=== PATIENT | female | born 1960 | race Caucasian/White ===

== ENCOUNTER 2020-12-13 08:04 | Outpatient (CLI) | payer BC ==
[2020-12-13 11:09] LABS: Anion Gap 13 mmol/L (10-20); BUN (Urea Nitrogen) 14 mg/dL (9.8-20.1); Calc. Creatinine Clearance 0 mL/min (70-130); Calcium 9.6 mg/dL (7.8-10.44); Carbon Dioxide 24 mmol/L (23-31); Chloride 106 mmol/L (98-107); Glucose 90 mg/dL (80-115); Potassium 4.4 mmol/L (3.5-5.1); Sodium 139 mmol/L (136-145)
[2020-12-13 11:10] LABS: ALT (SGPT) 17 U/L (8-55); AST (SGOT) 15 U/L (5-34); Albumin 4.1 g/dL (3.4-4.8); Alkaline Phosphatase 94 U/L (40-110); Bilirubin, Direct 0.1 mg/dL (0.1-0.3); Bilirubin, Total 0.2 mg/dL (0.2-1.2); Protein, Total 6.4 g/dL (5.8-8.1)
[2020-12-13 11:30] LABS: #Basophils 0.1 10x3/uL (0.0-0.2); #Eosinphils 0.1 10x3/uL (0.0-0.5); #Monocytes 1.1 10x3/uL (0.0-1.1); #Neutrophils 7.3 10x3/uL (1.5-8.4); %Basophils 0.5 % (0.0-2.0); %Eosinophils 1.2 % (0.0-6.0); %Lymphocytes 14.4 % (18.0-47.0); %Monocytes 10.5 % (0.0-10.0); %Neutrophils 72.9 % (40.0-75.0); Hemoglobin 13.4 g/dL (12.0-15.5); Mean Corpuscular HGB CONC 32.6 g/dL (32.0-36.0); Mean Corpuscular Hemoglobin 31.6 pg (27.0-33.0); Mean Corpuscular Volume 96.9 fl (81.6-98.3); Mean Platelet Volume 10.9 fl (7.4-10.4); Platelet Count 183 10x3/uL (150-450); RBC Distribution Width 12.3 % (11.5-14.5); Red Blood Cell (RBC) Count 4.24 10x6/uL (3.90-5.03)
[2020-12-13 21:48] LABS: SARS-CoV-2 PCR by NAA Not Detected (NotDetected)
== END 2020-12-13 08:05 | disposition home or self-care (01) ==
LOC: LABBT 08:04
PROVIDERS: ATTEND Surgery
DX: Z01.818 Encounter for other preprocedural examination (principal); K80.20 Calculus of gallbladder without cholecystitis without obstruction; Z20.822 Contact with and (suspected) exposure to COVID-19
CPT/HCPCS: 80048; 80076; 85025; 93005; 93010; U0003; U0005

== ENCOUNTER 2020-12-16 06:59 | Day surgery (SDC) | payer BC ==
[2020-12-15 11:26] VITALS: BMI 26.6
[2020-12-16] MEDS ORDERED: Levofloxacin 500 mg/D5W 100 ml Premix Bag ONE (07:53)
[2020-12-16] MEDS ORDERED: Midazolam HCl 2 mg/2 ml Vial ONE ×2 (08:22→08:33)
[2020-12-16] MEDS ORDERED: Lidocaine 1% w/Epinephrine 1:100K 20 ML VIAL ONE (08:32)
[2020-12-16] MEDS ORDERED: Bupivacaine 0.25% HCL 30 ML VIAL ONE (08:32)
[2020-12-16] MEDS ORDERED: Fentanyl 100 MCG/2 ML VIAL ONE ×3 (08:33→09:56)
[2020-12-16] MEDS ORDERED: Lidocaine 2% Jelly 5 ML TUBE ONE (08:33)
[2020-12-16] MEDS ORDERED: Lidocaine 1% PF 5 ML VIAL ONE (08:50)
[2020-12-16] MEDS ORDERED: Dexamethasone 20 MG/5 ML VIAL ONE (08:50)
[2020-12-16] MEDS ORDERED: Rocuronium Bromide 10 MG/ML (10ML VIAL) ONE (08:50)
[2020-12-16] MEDS ORDERED: PROPOFOL 200 MG/20 ML VIAL ONE (08:50)
[2020-12-16] MEDS ORDERED: Glycopyrrolate 0.2 MG/ML 5 ML SYRINGE ONE (08:50)
[2020-12-16] MEDS ORDERED: Ondansetron PF 4 MG/2 ML Vial ONE (08:50)
[2020-12-16] MEDS ORDERED: HYDROmorphone 0.5 MG/0.5 ML SYRINGE ONE (09:09)
[2020-12-16] MEDS ORDERED: Promethazine HCl 25 MG/ML VIAL ONE (09:38)
[2020-12-16] MEDS ORDERED: Meperidine HCl/PF 25 MG/ML VIAL ONE (10:15)
== END 2020-12-16 11:30 | disposition home or self-care (01) ==
LOC: SDC 06:59
PROVIDERS: ATTEND Surgery
PROC: 0FT44ZZ Resection of Gallbladder, Percutaneous Endoscopic Approach (ICD-10-PCS; principal; 2020-12-16)
DX: K80.10 Calculus of gallbladder with chronic cholecystitis without obstruction (principal); E03.9 Hypothyroidism, unspecified; Z80.0 Family history of malignant neoplasm of digestive organs; Z88.8 Allergy status to other drugs, medicaments and biological substances
CPT/HCPCS: 88304; J1100; J1170; J1956; J2175; J2250; J2405; J2550; J2704; J3010; S0020

== ENCOUNTER 2021-02-22 10:35 | Outpatient (CLI) | payer BC | END 2021-02-22 10:36 | disposition home or self-care (01) | LOC: BICRAD 10:35 | PROVIDERS: ATTEND Specialist | DX: M54.50 Low back pain, unspecified (principal); M47.816 Spondylosis without myelopathy or radiculopathy, lumbar region | CPT/HCPCS: 72100 ==

== ENCOUNTER 2021-05-26 11:45 | Inpatient (IN) | payer BC ==
[2021-05-31] MEDS ORDERED: Midazolam HCl 2 mg/2 ml Vial ONE ×2 (09:31→11:06)
[2021-05-31] MEDS ORDERED: Dexamethasone 4 mg/ml Vial ONE (09:31)
[2021-05-31] MEDS ORDERED: Fentanyl 100 MCG/2 ML VIAL ONE ×5 (09:31→14:36)
[2021-05-31] MEDS ORDERED: Bupivacaine 0.25% 10 ML VIAL ONE ×2 (11:22)
[2021-05-31] MEDS ORDERED: Lidocaine 1% w/Epinephrine 1:100K 30 ML VIAL ONE (11:22)
[2021-05-31] MEDS ORDERED: SUGAMMADEX SODIUM 200 MG/2 ML VIAL ONE (11:30)
[2021-05-31] MEDS ORDERED: Sodium Chloride 0.9% 100 ML ONE (11:37)
[2021-05-31] MEDS ORDERED: cefOXitin 2 GM VIAL ONE (11:37)
[2021-05-31] MEDS ORDERED: HYDROmorphone 0.5 MG/0.5 ML SYRINGE ONE (11:47)
[2021-05-31] MEDS ORDERED: Ondansetron PF 4 MG/2 ML Vial ONE (11:53)
[2021-05-31] MEDS ORDERED: Glycopyrrolate 0.2 MG/ML 5 ML SYRINGE ONE (11:53)
[2021-05-31] MEDS ORDERED: Bupivacaine HCl 0.5%/Epinephrine 1:200,000/PF 30 ml Vial ONE (11:53)
[2021-05-31] MEDS ORDERED: Dexamethasone 20 MG/5 ML VIAL ONE (11:53)
[2021-05-31] MEDS ORDERED: Rocuronium Bromide 10 MG/ML (10ML VIAL) ONE (11:53)
[2021-05-31] MEDS ORDERED: PROPOFOL 200 MG/20 ML VIAL ONE (11:53)
[2021-05-31] MEDS ORDERED: Lidocaine 1% PF 5 ML VIAL ONE (11:53)
[2021-05-31] MEDS ORDERED: Promethazine HCl 25 MG/ML VIAL IM PRN ×2 (13:23)
[2021-05-31] MEDS ORDERED: Promethazine HCl 25 MG/ML VIAL IVPB PRN (13:23)
[2021-05-31] MEDS ORDERED: diphenhydrAMINE 50 MG/ML VIAL IVP PRN (13:23)
[2021-05-31] MEDS ORDERED: fentaNYL Citrate/PF 2,000 MCG in Sodium Chloride 0.9% 60 ML IV PRN (13:23)
[2021-05-31] MEDS ORDERED: Naloxone HCl 0.4 mg/ml Vial IV PRN (13:23)
[2021-05-31] MEDS ORDERED: diphenhydrAMINE 25 MG CAP PO PRN (13:23)
[2021-05-31] MEDS ORDERED: diphenhydrAMINE 50 MG/ML VIAL IM PRN (13:23)
[2021-05-31] MEDS ORDERED: Ondansetron PF 4 MG/2 ML Vial IVP PRN (13:23)
[2021-05-31] MEDS ORDERED: Ondansetron HCl/PF 4 MG/2 ML Vial IVP PRN (13:23)
[2021-05-31] MEDS ORDERED: Zolpidem Tartrate 5 MG TAB PO PRN (13:23)
[2021-05-31] MEDS ORDERED: Communication Order-Pharmacy FS SCH (13:30)
[2021-05-31] MEDS ORDERED: hydrALAZINE 20 MG/ML VIAL SLOW IVP PRN (15:42)
[2021-05-31] MEDS ORDERED: Montelukast Sodium 10 mg Tablet PO PRN (15:42)
[2021-05-31] MEDS ORDERED: TEMAZEPAM 7.5 MG PO PRN (16:16)
[2021-05-31 18:45] VITALS: BMI 25.5
[2021-05-31] MEDS: metroNIDAZOLE 500 MG in Premix Bag 1 BAG IVPB SCH (19:46)
[2021-05-31] MEDS: Famotidine 20 MG TAB PO SCH (20:31)
[2021-05-31] MEDS: Famotidine/PF 20 mg/2ml Vial SLOW IVP SCH (20:37)
[2021-06-01] MEDS: D5 1/2 NS w/20 mEq KCL 1,000 ML IV SCH ×5 (00:37→14:32)
[2021-06-01] MEDS: metroNIDAZOLE 500 MG in Premix Bag 1 BAG IVPB SCH ×2 (00:38→05:16)
[2021-06-01] MEDS: Levothyroxine 150 MCG TAB PO SCH (05:15)
[2021-06-01 06:05] LABS: #Lymphocytes 1.2 thou/uL (1.20-3.40); #Monocytes 1.6 thou/uL (0.11-0.59); #Neutrophils 10.8 thou/uL (1.40-6.50); %Basophils 0.1 % (0.0-1.0); %Eosinophils 0.1 % (0.0-10.0); %Monocytes 11.7 % (0.0-10.0); %Neutrophils 79.2 % (42.0-75.0); Hemoglobin 9.7 g/dL (12.0-16.0); Mean Corpuscular HGB CONC 32.3 g/dL (32.0-36.0); Mean Corpuscular Volume 95.9 fL (78.0-98.0); Mean Platelet Volume 7.6 fL (7.4-10.4); Platelet Count 256 thou/uL (130-400); RBC Distribution Width 13.2 % (11.5-14.5); Red Blood Cell (RBC) Count 3.14 mill/uL (4.20-5.40); White Blood Cell (WBC) Count 13.6 thou/uL (4.8-10.8)
[2021-06-01 06:31] LABS: Anion Gap 12 mmol/L (10-20); BUN (Urea Nitrogen) 9 mg/dL (9.8-20.1); Calc. Creatinine Clearance 85 mL/min (70-130); Calcium 8.5 mg/dL (7.8-10.44); Carbon Dioxide 24 mmol/L (23-31); Chloride 106 mmol/L (98-107); Glucose 136 mg/dL (80-115); Potassium 4.9 mmol/L (3.5-5.1); Sodium 137 mmol/L (136-145)
[2021-06-01] MEDS: Enoxaparin Sodium 40 MG/0.4 ML SYRINGE SC SCH (08:18)
[2021-06-01] MEDS: Famotidine 20 MG TAB PO SCH ×2 (08:18→20:42)
[2021-06-01] MEDS: Ramipril 5 MG CAP PO SCH (08:18)
[2021-06-01] MEDS: Famotidine/PF 20 mg/2ml Vial SLOW IVP SCH ×2 (08:19→20:42)
[2021-06-01] MEDS ORDERED: FLU VACC QS2021-22(6MOS UP)/PF 60 MCG/0.5 ML SYRINGE IM ONE (09:00)
[2021-06-01] MEDS: Ondansetron PF 4 MG/2 ML Vial IVP PRN (14:26)
[2021-06-02] MEDS: Levothyroxine 150 MCG TAB PO SCH (05:06)
[2021-06-02] MEDS: D5 1/2 NS w/20 mEq KCL 1,000 ML IV SCH ×2 (05:06→17:16)
[2021-06-02 05:47] LABS: #Eosinphils 0.2 thou/uL (0.0-0.7); #Monocytes 1.2 thou/uL (0.11-0.59); #Neutrophils 8.3 thou/uL (1.40-6.50); %Basophils 0.5 % (0.0-1.0); %Lymphocytes 9.2 % (21.0-51.0); %Monocytes 11.5 % (0.0-10.0); %Neutrophils 76.9 % (42.0-75.0); Hemoglobin 7.8 g/dL (12.0-16.0); Mean Corpuscular Hemoglobin 31.1 pg (27.0-31.0); Mean Corpuscular Volume 97.2 fL (78.0-98.0); Mean Platelet Volume 7.4 fL (7.4-10.4); Platelet Count 197 thou/uL (130-400); RBC Distribution Width 13.1 % (11.5-14.5); Red Blood Cell (RBC) Count 2.52 mill/uL (4.20-5.40); White Blood Cell (WBC) Count 10.8 thou/uL (4.8-10.8)
[2021-06-02 06:07] LABS: Anion Gap 10 mmol/L (10-20); BUN (Urea Nitrogen) 5 mg/dL (9.8-20.1); Calc. Creatinine Clearance 96 mL/min (70-130); Calcium 8.4 mg/dL (7.8-10.44); Carbon Dioxide 25 mmol/L (23-31); Chloride 104 mmol/L (98-107); Glucose 119 mg/dL (80-115); Potassium 4.6 mmol/L (3.5-5.1); Sodium 134 mmol/L (136-145)
[2021-06-02] MEDS: Famotidine 20 MG TAB PO SCH ×2 (08:13→20:39)
[2021-06-02] MEDS: Enoxaparin Sodium 40 MG/0.4 ML SYRINGE SC SCH (08:13)
[2021-06-02] MEDS: Ramipril 5 MG CAP PO SCH (08:13)
[2021-06-02] MEDS: Famotidine/PF 20 mg/2ml Vial SLOW IVP SCH ×2 (08:14→23:47)
[2021-06-02] MEDS: Fentanyl 100 MCG/2 ML VIAL SLOW IVP PRN ×2 (13:20→17:25)
[2021-06-02] MEDS: ALPRAZolam 0.5 MG TAB PO PRN ×2 (13:53→20:43)
[2021-06-02] MEDS: Ondansetron PF 4 MG/2 ML Vial IVP PRN (22:47)
[2021-06-03] MEDS: Promethazine HCl 25 MG/ML VIAL IM PRN ×3 (02:01→19:48)
[2021-06-03] MEDS: Levothyroxine 150 MCG TAB PO SCH (05:44)
[2021-06-03] MEDS: Ondansetron PF 4 MG/2 ML Vial IVP PRN ×3 (06:17→21:03)
[2021-06-03] MEDS: Ramipril 5 MG CAP PO SCH (08:39)
[2021-06-03] MEDS: Famotidine 20 MG TAB PO SCH ×2 (08:40→21:02)
[2021-06-03] MEDS: Enoxaparin Sodium 40 MG/0.4 ML SYRINGE SC SCH (08:40)
[2021-06-03] MEDS: D5 1/2 NS w/20 mEq KCL 1,000 ML IV SCH ×2 (08:41→21:02)
[2021-06-03] MEDS: Fentanyl 100 MCG/2 ML VIAL SLOW IVP PRN ×2 (13:18→17:49)
[2021-06-03] MEDS: HYDROcodone/Acetaminophen 7.5/325 mg Tablet PO PRN (15:32)
[2021-06-03] MEDS: Famotidine/PF 20 mg/2ml Vial SLOW IVP SCH ×2 (15:37→21:02)
[2021-06-03] MEDS: Ketorolac Tromethamine 30 MG/ML VIAL IVP PRN (17:48)
[2021-06-03] MEDS ORDERED: Benzocaine 20% Spray 60 ML CAN PO SCH (19:45)
[2021-06-04] MEDS: Promethazine HCl 25 MG/ML VIAL IM PRN ×2 (00:45→05:31)
[2021-06-04] MEDS: Ondansetron PF 4 MG/2 ML Vial IVP PRN ×2 (03:05→08:55)
[2021-06-04] MEDS: D5 1/2 NS w/20 mEq KCL 1,000 ML IV SCH (05:31)
[2021-06-04 05:35] LABS: Anion Gap 11 mmol/L (10-20); BUN (Urea Nitrogen) 4 mg/dL (9.8-20.1); Calc. Creatinine Clearance 86 mL/min (70-130); Calcium 8.7 mg/dL (7.8-10.44); Carbon Dioxide 28 mmol/L (23-31); Chloride 102 mmol/L (98-107); Glucose 106 mg/dL (80-115); Potassium 4.4 mmol/L (3.5-5.1); Sodium 137 mmol/L (136-145)
[2021-06-04] MEDS: Levothyroxine 150 MCG TAB PO SCH (05:36)
[2021-06-04 05:50] LABS: #Eosinphils 0.4 thou/uL (0.0-0.7); #Lymphocytes 1.4 thou/uL (1.20-3.40); #Monocytes 0.9 thou/uL (0.11-0.59); %Basophils 0.2 % (0.0-1.0); %Eosinophils 3.4 % (0.0-10.0); %Lymphocytes 11.7 % (21.0-51.0); %Monocytes 7.7 % (0.0-10.0); %Neutrophils 77.1 % (42.0-75.0); Mean Corpuscular HGB CONC 31.3 g/dL (32.0-36.0); Mean Corpuscular Hemoglobin 29.8 pg (27.0-31.0); Mean Corpuscular Volume 95.3 fL (78.0-98.0); Mean Platelet Volume 6.8 fL (7.4-10.4); Platelet Count 278 thou/uL (130-400); Red Blood Cell (RBC) Count 3.01 mill/uL (4.20-5.40); White Blood Cell (WBC) Count 11.6 thou/uL (4.8-10.8)
[2021-06-04] MEDS: Fentanyl 100 MCG/2 ML VIAL SLOW IVP PRN (06:54)
[2021-06-04] MEDS: Ketorolac Tromethamine 30 MG/ML VIAL IVP PRN (06:55)
[2021-06-04] MEDS: Famotidine/PF 20 mg/2ml Vial SLOW IVP SCH (08:23)
[2021-06-04] MEDS: Enoxaparin Sodium 40 MG/0.4 ML SYRINGE SC SCH (08:24)
[2021-06-04] MEDS: Ramipril 5 MG CAP PO SCH (08:24)
[2021-06-04 10:47] VITALS: BP 162/68; TEMP 98.2
[2021-06-04] MEDS: HYDROcodone/Acetaminophen 7.5/325 mg Tablet PO PRN ×2 (11:01→14:36)
[2021-06-04] MEDS: Famotidine 20 MG TAB PO SCH (11:02)
== END 2021-06-04 18:15 | disposition home or self-care (01) | DRG 330 ==
LOC: SURG A 05-31 08:24
PROVIDERS: ADMIT Surgery; ATTEND Surgery
PROC: 0DBN0ZZ Excision of Sigmoid Colon, Open Approach (ICD-10-PCS; principal; 2021-05-31)
DX: K57.20 Diverticulitis of large intestine with perforation and abscess without bleeding (principal); N32.1 Vesicointestinal fistula; K56.7 Ileus, unspecified; Z20.822 Contact with and (suspected) exposure to COVID-19; F41.9 Anxiety disorder, unspecified; E03.9 Hypothyroidism, unspecified; Z79.899 Other long term (current) drug therapy; Z90.710 Acquired absence of both cervix and uterus; Z88.0 Allergy status to penicillin; Z88.8 Allergy status to other drugs, medicaments and biological substances
CPT/HCPCS: 36415; 36416; 80048; 85025; 88304; 88307; A4649; C1713; C1776; J0694; J1100; J1170; J1650; J1885; J1956; J2250; J2405; J2550; J2704; J3010; J3480; J3490; S0020; S0028

== ENCOUNTER 2021-05-26 11:51 | Outpatient (CLI) | payer BC ==
[2021-05-26 13:11] LABS: #Basophils 0.1 10x3/uL (0.0-0.2); #Eosinphils 0.1 10x3/uL (0.0-0.5); #Monocytes 0.8 10x3/uL (0.0-1.1); #Neutrophils 10.2 10x3/uL (1.5-8.4); %Basophils 0.4 % (0.0-2.0); %Lymphocytes 12.2 % (18.0-47.0); %Monocytes 6.5 % (0.0-10.0); %Neutrophils 79.4 % (40.0-75.0); Mean Corpuscular HGB CONC 31.9 g/dL (32.0-36.0); Mean Corpuscular Hemoglobin 29.4 pg (27.0-33.0); Mean Corpuscular Volume 92.2 fl (81.6-98.3); Mean Platelet Volume 10.6 fl (7.4-10.4); Platelet Count 239 10x3/uL (150-450); RBC Distribution Width 14.2 % (11.5-14.5); Red Blood Cell (RBC) Count 4.08 10x6/uL (3.90-5.03); White Blood Cell (WBC) Count 12.9 10x3/uL (3.5-10.5)
[2021-05-26 13:21] LABS: Anion Gap 16 mmol/L (10-20); BUN (Urea Nitrogen) 15 mg/dL (9.8-20.1); Calc. Creatinine Clearance 0 mL/min (70-130); Calcium 9.2 mg/dL (7.8-10.44); Carbon Dioxide 24 mmol/L (23-31); Chloride 103 mmol/L (98-107); Glucose 91 mg/dL (80-115); Potassium 4.7 mmol/L (3.5-5.1); Sodium 138 mmol/L (136-145)
[2021-05-27 08:38] LABS: SARS-CoV-2 PCR by NAA Not Detected (NotDetected)
== END 2021-05-26 11:52 | disposition home or self-care (01) ==
LOC: LABBT 11:51
PROVIDERS: ATTEND Surgery
DX: Z01.812 Encounter for preprocedural laboratory examination (principal); N32.1 Vesicointestinal fistula; Z20.822 Contact with and (suspected) exposure to COVID-19
CPT/HCPCS: 80048; 83036; 85025; U0003; U0005

== ENCOUNTER 2021-06-30 13:47 | Outpatient (CLI) | payer BC | END 2021-06-30 13:48 | disposition home or self-care (01) | LOC: BICCT 13:47 | PROVIDERS: ATTEND Surgery | DX: N32.1 Vesicointestinal fistula (principal); N73.9 Female pelvic inflammatory disease, unspecified | CPT/HCPCS: 74177 ==

== ENCOUNTER 2021-07-07 11:02 | Day surgery (SDC) | payer BC ==
[2021-07-06 16:01] VITALS: BMI 24.5
[2021-07-07] MEDS ORDERED: Fentanyl 100 MCG/2 ML VIAL ONE ×2 (12:20→13:05)
[2021-07-07 12:22] LABS: INR-International Normal Ratio 0.9; PTT 32.2 sec (22.9-36.1); Prothrombin Time 12.4 sec (12.0-14.7)
[2021-07-07] MEDS ORDERED: Sodium Bicarbonate 2.5 MEQ/5 ML VIAL ONE (12:22)
[2021-07-07] MEDS ORDERED: Midazolam HCl 2 mg/2 ml Vial ONE ×2 (12:22→13:05)
[2021-07-07] MEDS ORDERED: Lidocaine 1% PF 5 ML VIAL ONE (12:22)
[2021-07-07 15:09] VITALS: BP 160/70; TEMP 98.7
[2021-07-07 15:12] LABS: BF Color Red; Body Fluid Source Abscess Fluid; Clarity Hazy (Clear); Tube # EDTA
[2021-07-07] MEDS ORDERED: traMADol HCl 50 MG TAB PO SCH (15:15)
== END 2021-07-07 15:24 | disposition home or self-care (01) ==
LOC: CT 11:02
PROVIDERS: ATTEND Surgery
PROC: 0W9G30Z Drainage of Peritoneal Cavity with Drainage Device, Percutaneous Approach (ICD-10-PCS; principal; 2021-07-07)
DX: N73.9 Female pelvic inflammatory disease, unspecified (principal); E07.9 Disorder of thyroid, unspecified; Z79.890 Hormone replacement therapy; Z79.899 Other long term (current) drug therapy; Z88.0 Allergy status to penicillin; Z88.8 Allergy status to other drugs, medicaments and biological substances; Z90.49 Acquired absence of other specified parts of digestive tract
CPT/HCPCS: 49060; 77002; 85060; 85610; 85730; 87070; 87077; 87186; 87205; 89051; C1729; J0744; J2250; J3010

== ENCOUNTER 2021-09-30 08:51 | Outpatient (CLI) | payer BC | END 2021-09-30 08:52 | disposition home or self-care (01) | LOC: BICMAMMO 08:51 | PROVIDERS: ATTEND Specialist | DX: Z12.31 Encounter for screening mammogram for malignant neoplasm of breast (principal); M85.89 Other specified disorders of bone density and structure, multiple sites | CPT/HCPCS: 77063; 77067; 77080 ==

== ENCOUNTER 2022-03-02 09:29 | Outpatient (CLI) | payer BC | END 2022-03-02 09:30 | disposition home or self-care (01) | LOC: CT 09:29 | PROVIDERS: ATTEND Internal Medicine Gastroenterology | DX: R19.7 Diarrhea, unspecified (principal); R23.2 Flushing; K43.9 Ventral hernia without obstruction or gangrene; K59.00 Constipation, unspecified; K76.9 Liver disease, unspecified; Z98.890 Other specified postprocedural states | CPT/HCPCS: 74177; 82565 ==

== ENCOUNTER 2022-03-30 10:17 | Outpatient (CLI) | payer BC ==
[2022-03-30 12:37] LABS: #Basophils 0.1 10x3/uL (0.0-0.2); #Eosinphils 0.2 10x3/uL (0.0-0.5); #Monocytes 0.6 10x3/uL (0.0-1.1); #Neutrophils 5.7 10x3/uL (1.5-8.4); %Basophils 0.9 % (0.0-2.0); %Eosinophils 1.9 % (0.0-6.0); %Lymphocytes 18.8 % (18.0-47.0); %Neutrophils 71.2 % (40.0-75.0); Mean Corpuscular HGB CONC 33.9 g/dL (32.0-36.0); Mean Corpuscular Hemoglobin 32.4 pg (27.0-33.0); Mean Corpuscular Volume 95.5 fl (81.6-98.3); Mean Platelet Volume 11.1 fl (7.4-10.4); Platelet Count 196 10x3/uL (150-450); RBC Distribution Width 12.8 % (11.5-14.5); Red Blood Cell (RBC) Count 4.63 10x6/uL (3.90-5.03)
[2022-03-30 13:15] LABS: Anion Gap 15 mmol/L (10-20); BUN (Urea Nitrogen) 19 mg/dL (9.8-20.1); Calc. Creatinine Clearance 0 mL/min (70-130); Calcium 9.6 mg/dL (7.8-10.44); Carbon Dioxide 22 mmol/L (23-31); Chloride 105 mmol/L (98-107); Estimated GFR 76; Glucose 84 mg/dL (80-115); Potassium 4.2 mmol/L (3.5-5.1); Sodium 138 mmol/L (136-145)
== END 2022-03-30 10:18 | disposition home or self-care (01) ==
LOC: LABBT 10:17
PROVIDERS: ATTEND Surgery
DX: Z01.818 Encounter for other preprocedural examination (principal); K43.2 Incisional hernia without obstruction or gangrene
CPT/HCPCS: 80048; 85025; 93005; 93010

== ENCOUNTER 2022-04-05 09:36 | Inpatient (IN) | payer BC ==
[2022-04-05] MEDS ORDERED: HYDROmorphone 0.5 MG/0.5 ML SYRINGE ONE ×2 (10:49→11:58)
[2022-04-05] MEDS ORDERED: fentaNYL PF 100 MCG/2 ML SYRINGE ONE ×3 (10:49→14:00)
[2022-04-05] MEDS ORDERED: Bupivacaine/Epinephrine 0.25% 30 ML VIAL ONE (10:50)
[2022-04-05] MEDS ORDERED: Midazolam HCl 2 mg/2 ml Vial ONE ×2 (11:00→11:18)
[2022-04-05] MEDS ORDERED: CEFAZOLIN 1 GM VIAL ONE (11:23)
[2022-04-05] MEDS ORDERED: Levofloxacin 500 mg/D5W 100 ml Premix Bag ONE (11:25)
[2022-04-05] MEDS ORDERED: NEOSTIGMINE 3 MG/3 ML SYR 3 MG/3 ML SYRINGE ONE (11:33)
[2022-04-05] MEDS ORDERED: PROPOFOL 200 MG/20 ML VIAL ONE (11:33)
[2022-04-05] MEDS ORDERED: Ondansetron PF 4 MG/2 ML Vial ONE (11:33)
[2022-04-05] MEDS ORDERED: Dexamethasone 20 MG/5 ML VIAL ONE (11:33)
[2022-04-05] MEDS ORDERED: Glycopyrrolate 0.2 MG/ML 5 ML SYRINGE ONE (11:33)
[2022-04-05] MEDS ORDERED: Lidocaine 1% PF 5 ML VIAL ONE (11:33)
[2022-04-05] MEDS ORDERED: Rocuronium Bromide 10 MG/ML (10ML VIAL) ONE (11:33)
[2022-04-05] MEDS ORDERED: HYDROmorphone 2 MG/ML VIAL SLOW IVP PRN (13:35)
[2022-04-05] MEDS ORDERED: Promethazine HCl 25 MG/ML VIAL IM PRN ×3 (13:35→13:39)
[2022-04-05] MEDS ORDERED: Ondansetron HCl/PF 4 MG/2 ML Vial IVP PRN (13:35)
[2022-04-05] MEDS ORDERED: Dextrose 50% Abboject 50 ML SYRINGE SLOW IVP PRN (13:37)
[2022-04-05] MEDS ORDERED: Ondansetron PF 4 MG/2 ML Vial IVP PRN (13:37)
[2022-04-05] MEDS ORDERED: Ipratropium/Albuterol 3 ML NEB NEB PRN (13:37)
[2022-04-05] MEDS ORDERED: Dextrose 5% in Water 1,000 ML IV PRN (13:37)
[2022-04-05] MEDS ORDERED: hydrALAZINE 20 MG/ML VIAL SLOW IVP PRN (13:37)
[2022-04-05] MEDS ORDERED: ALPRAZolam 0.5 MG TAB PO PRN (13:37)
[2022-04-05] MEDS ORDERED: diphenhydrAMINE 25 MG CAP PO PRN (13:39)
[2022-04-05] MEDS ORDERED: Naloxone HCl 0.4 mg/ml Vial IV PRN (13:39)
[2022-04-05] MEDS ORDERED: FENTANYL 500 MCG/10 ML VIAL 2,000 MCG in Sodium Chloride 0.9% 60 ML IV PRN (13:39)
[2022-04-05] MEDS ORDERED: diphenhydrAMINE 50 MG/ML VIAL IVP PRN (13:39)
[2022-04-05] MEDS ORDERED: diphenhydrAMINE 50 MG/ML VIAL IM PRN (13:39)
[2022-04-05] MEDS ORDERED: Zolpidem Tartrate 5 MG TAB PO PRN (13:39)
[2022-04-05] MEDS ORDERED: Promethazine HCl 25 MG/ML VIAL ONE (13:42)
[2022-04-05] MEDS ORDERED: TEMAZEPAM 7.5 MG PO PRN (13:43)
[2022-04-05] MEDS ORDERED: Communication Order-Pharmacy FS PRN (13:45)
[2022-04-05] MEDS: Famotidine 20 MG TAB PO SCH (20:39)
[2022-04-05] MEDS: Famotidine/PF 20 mg/2ml Vial SLOW IVP SCH (20:39)
[2022-04-05] MEDS: Icosapent Ethyl 1 GM CAPSULE PO SCH (20:40)
[2022-04-05] MEDS: D5 1/2 NS w/20 mEq KCL 1,000 ML IV SCH (21:11)
[2022-04-06] MEDS: Levothyroxine 150 MCG TAB PO SCH (05:29)
[2022-04-06] MEDS: Montelukast Sodium 10 mg Tablet PO SCH (09:28)
[2022-04-06] MEDS: Famotidine 20 MG TAB PO SCH ×2 (09:28→22:23)
[2022-04-06] MEDS: Famotidine/PF 20 mg/2ml Vial SLOW IVP SCH ×2 (09:29→21:21)
[2022-04-06] MEDS: D5 1/2 NS w/20 mEq KCL 1,000 ML IV SCH ×2 (09:31→12:39)
[2022-04-06] MEDS: Ramipril 5 MG CAP PO SCH (10:37)
[2022-04-06 20:15] VITALS: BMI 25.3
[2022-04-06] MEDS: Icosapent Ethyl 1 GM CAPSULE PO SCH (22:23)
[2022-04-07] MEDS: D5 1/2 NS w/20 mEq KCL 1,000 ML IV SCH ×3 (02:58→15:38)
[2022-04-07] MEDS ORDERED: Ketorolac Tromethamine 30 MG/ML VIAL IVP PRN (03:10)
[2022-04-07] MEDS ORDERED: HYDROcodone/Acetaminophen 7.5/325 mg Tablet PO PRN (03:11)
[2022-04-07] MEDS: Levothyroxine 150 MCG TAB PO SCH (06:39)
[2022-04-07] MEDS: Famotidine 20 MG TAB PO SCH ×2 (08:43→21:12)
[2022-04-07] MEDS: Famotidine/PF 20 mg/2ml Vial SLOW IVP SCH ×2 (08:44→23:44)
[2022-04-07] MEDS: Ramipril 5 MG CAP PO SCH (08:44)
[2022-04-07] MEDS: Montelukast Sodium 10 mg Tablet PO SCH (08:44)
[2022-04-07] MEDS: Ondansetron PF 4 MG/2 ML Vial IVP PRN ×2 (08:46→19:36)
[2022-04-07] MEDS: Icosapent Ethyl 1 GM CAPSULE PO SCH (21:12)
[2022-04-08] MEDS: D5 1/2 NS w/20 mEq KCL 1,000 ML IV SCH (03:52)
[2022-04-08] MEDS: Levothyroxine 150 MCG TAB PO SCH (06:07)
[2022-04-08 07:34] LABS: #Eosinphils 0.2 thou/uL (0.0-0.7); #Lymphocytes 0.9 thou/uL (1.20-3.40); #Monocytes 0.8 thou/uL (0.11-0.59); %Basophils 0.1 % (0.0-1.0); %Eosinophils 2.7 % (0.0-10.0); %Lymphocytes 10.3 % (21.0-51.0); Hemoglobin 8.3 g/dL (12.0-16.0); Mean Corpuscular Hemoglobin 33.8 pg (27.0-31.0); Mean Corpuscular Volume 99.4 fl (78.0-98.0); Mean Platelet Volume 8.8 fL (7.4-10.4); Platelet Count 136 10x3/uL (130-400); RBC Distribution Width 11.5 % (11.5-14.5); Red Blood Cell (RBC) Count 2.45 mill/uL (4.20-5.40)
[2022-04-08 07:45] LABS: Anion Gap 11 mmol/L (10-20); BUN (Urea Nitrogen) 8 mg/dL (9.8-20.1); Calc. Creatinine Clearance 98 mL/min (70-130); Calcium 8.6 mg/dL (7.8-10.44); Carbon Dioxide 23 mmol/L (23-31); Chloride 104 mmol/L (98-107); Estimated GFR 97; Glucose 112 mg/dL (80-115); Potassium 4.3 mmol/L (3.5-5.1); Sodium 134 mmol/L (136-145)
[2022-04-08] MEDS ORDERED: FLU VACC QS2022-23(6MOS UP)/PF 60 MCG/0.5 ML SYRINGE IM ONE (09:00)
[2022-04-08] MEDS: Famotidine 20 MG TAB PO SCH (09:42)
[2022-04-08] MEDS: Montelukast Sodium 10 mg Tablet PO SCH (09:42)
[2022-04-08] MEDS: Ramipril 5 MG CAP PO SCH (09:43)
[2022-04-08] MEDS: Famotidine/PF 20 mg/2ml Vial SLOW IVP SCH (09:43)
[2022-04-08 12:00] VITALS: BP 139/55; TEMP 98.7
== END 2022-04-08 11:35 | disposition home or self-care (01) | DRG 354 ==
LOC: SDC 09:36 → T4-B 13:34 → EDSTATUS 17:00 → OBSVTOIN 04-07 14:23
PROVIDERS: ADMIT Surgery; ATTEND Surgery
PROC: 0WUF0JZ Supplement Abdominal Wall with Synthetic Substitute, Open Approach (ICD-10-PCS; principal; 2022-04-05)
DX: K43.2 Incisional hernia without obstruction or gangrene (principal); K56.7 Ileus, unspecified; E03.9 Hypothyroidism, unspecified; F41.9 Anxiety disorder, unspecified; G89.29 Other chronic pain; Z79.890 Hormone replacement therapy; Z79.899 Other long term (current) drug therapy; Z90.710 Acquired absence of both cervix and uterus; Z87.442 Personal history of urinary calculi; Z90.49 Acquired absence of other specified parts of digestive tract; Z82.49 Family history of ischemic heart disease and other diseases of the circulatory system; Z88.0 Allergy status to penicillin; Z88.8 Allergy status to other drugs, medicaments and biological substances
CPT/HCPCS: 36415; 36416; 70450; 80048; 85025; 96372; 96374; 96375; 96376; C1781; G0378; J0690; J1100; J1170; J1650; J1885; J1956; J2250; J2405; J2550; J2704; J3010; J3480; J3490; S0028

== ENCOUNTER 2022-05-03 13:33 | Outpatient (CLI) | payer BC ==
[~2022-05-03 13:33] MED LIST: Iopamidol-370 76% 500 ML 1 ML ONE
== END 2022-05-03 13:34 | disposition home or self-care (01) ==
LOC: BICCT 13:33
PROVIDERS: ATTEND Specialist
DX: T81.49XA Infection following a procedure, other surgical site, initial encounter (principal)
CPT/HCPCS: 74177; Q9967

== ENCOUNTER 2023-05-30 08:40 | Outpatient (CLI) | payer BC | END 2023-05-30 08:41 | disposition home or self-care (01) | LOC: CT 08:40 | PROVIDERS: ATTEND Surgery | DX: K43.2 Incisional hernia without obstruction or gangrene (principal) | CPT/HCPCS: 74177; 82565 ==

== ENCOUNTER 2024-05-09 15:25 | Emergency (ER) | payer MEDICARE ==
[2024-05-09] MEDS ORDERED: PROPOFOL 20 ML ONE (16:20)
== END 2024-05-09 17:38 | disposition home or self-care (01) ==
LOC: ERS 15:25
DX: S43.005A Unspecified dislocation of left shoulder joint, initial encounter (principal); I10 Essential (primary) hypertension; F17.210 Nicotine dependence, cigarettes, uncomplicated; W01.0XXA Fall on same level from slipping, tripping and stumbling without subsequent striking against object, initial encounter
CPT/HCPCS: 23650; 73030; 73060; 99152; 99283; J2704

== ENCOUNTER 2024-09-17 21:58 | Emergency (ER) | payer MEDICARE ==
[2024-09-17] MEDS ORDERED: Boostrix 0.5 ML (Tdap) VIAL (>/=7 yrs of age) ONE (22:45)
[2024-09-17] MEDS ORDERED: Lidocaine 1% w/Epinephrine 1:100K 20 ML VIAL ONE (22:45)
[2024-09-17] MEDS ORDERED: Bacitracin 1 PK ONE (23:38)
== END 2024-09-17 23:56 | disposition home or self-care (01) ==
LOC: ERS 21:58
DX: S61.250A Open bite of right index finger without damage to nail, initial encounter (principal); I10 Essential (primary) hypertension; F17.210 Nicotine dependence, cigarettes, uncomplicated; Z23 Encounter for immunization; W54.0XXA Bitten by dog, initial encounter
CPT/HCPCS: 73110; 90715; J2270; 12002; 90471; 96372